=== PATIENT | female | born 2000 | race Caucasian/White ===

== ENCOUNTER 2023-01-30 22:47 | Emergency (ER) | payer MEDICAID ==
[~2023-01-30] VITALS: Ht 152.4 cm; Wt 67.1 kg
[2023-01-30 22:56] VITALS: BP 122/74; PULSE 88; RESP 16; TEMP 98.5; O2SAT 98
[2023-01-31 00:53] LABS: BASOPHILS # (AUTO) 0.1 K/uL (0.00-0.22); BASOPHILS % (AUTO) 0.6 % (0.0-2.0); EOSINOPHILS # (AUTO) 0.3 K/uL (0-0.4); EOSINOPHILS % (AUTO) 3.3 % (0.0-4.0); HEMATOCRIT 37.1 % (36-48); HEMOGLOBIN 12.3 g/dL (12.0-16.0); LYMPHOCYTES # (AUTO) 2.9 K/uL (2.5-16.5); LYMPHOCYTES % (AUTO) 30.3 % (20.5-51.1); MEAN CORPUSCULAR HEMOGLOBIN 29 pg (27-31); MEAN CORPUSCULAR HGB CONC 33 g/dL (33-37); MEAN CORPUSCULAR VOLUME 86.5 fL (80-94); MONOCYTES # (AUTO) 0.7 K/uL (0.8-1.0); MONOCYTES % (AUTO) 7.4 % (1.7-9.3); NEUTROPHILS # (AUTO) 5.6 K/uL (1.8-7.7); NEUTROPHILS % (AUTO) 58.4 % (42.2-75.2); PLATELET COUNT (AUTO) 348 K/uL (140-450); RED BLOOD CELL COUNT(AUTO) 4.29 MIL/uL (4.20-5.40); RED CELL DISTRIBUTION WIDTH 14.1 % (11.6-13.7); WHITE BLOOD COUNT (AUTO) 9.5 K/uL (4.8-10.8)
[2023-01-31 01:00] LABS: ANION GAP 12.8 (8-16); CALCIUM 8.8 mg/dL (8.5-10.1); CREATININE 0.7 mg/dL (0.6-1.3); POTASSIUM 3.8 mmol/L (3.5-5.1)
[2023-01-31 01:06] LABS: BILIRUBIN,DIRECT 0.1 mg/dL (0.0-0.3); TOTAL BILIRUBIN 0.2 mg/dL (0.0-1.0); TOTAL PROTEIN, SERUM 8.4 g/dL (6.4-8.2)
[2023-01-31] MEDS ORDERED: DICYCLOMINE HCL LIQUID 20 MG, ALUMINUM HYD/MAG/SIMETHICONE 30 ML, LIDOCAINE VISCOUS 2% ... PO ONE ×3 (01:55)
[2023-01-31] MEDS ORDERED: ONDA8TAB87 PO (02:02)
[2023-01-31] MEDS ORDERED: OMEP40EC24 PO (02:02)
[2023-01-31] MEDS ORDERED: ALUMINUM HYD/MAG/SIMETHICONE 30 ML UDC ONE (02:11)
[2023-01-31] MEDS ORDERED: DICYCLOMINE HCL LIQUID 10 MG/5 ML UDC ONE (02:11)
== END 2023-01-31 02:20 | disposition home or self-care (01) ==
LOC: MED 22:47
DX: R10.13 Epigastric pain (principal); R11.0 Nausea; Z79.899 Other long term (current) drug therapy
CPT/HCPCS: 36415; 80048; 80076; 83690; 85025; 99283

== ENCOUNTER 2023-09-08 00:10 | Emergency (ER) | payer MEDICAID ==
[~2023-09-08] VITALS: Ht 152.4 cm; Wt 61.2 kg
[~2023-09-08 00:10] MED LIST: OMEP40EC24 PO; ONDA8TAB87 PO
[2023-09-08 00:33] VITALS: BP 128/80; PULSE 109; RESP 18; TEMP 98.7; O2SAT 98
[2023-09-08] MEDS ORDERED: ONDA-188 SL (02:51)
== END 2023-09-08 02:56 | disposition home or self-care (01) ==
LOC: MED 00:10
DX: S06.0X0A Concussion without loss of consciousness, initial encounter (principal); Z79.1 Long term (current) use of non-steroidal anti-inflammatories (NSAID); Z79.899 Other long term (current) drug therapy; W18.39XA Other fall on same level, initial encounter; Y93.89 Activity, other specified; Y92.89 Other specified places as the place of occurrence of the external cause; Y99.8 Other external cause status
CPT/HCPCS: 99283